=== PATIENT | female | born 1985 | race Caucasian/White ===

== ENCOUNTER 2021-03-27 13:24 | Outpatient (REF) | payer OTHER, SELFPAY ==
--- NOTE | ~2021-03-27 | US_ITS ---
EXAMINATION: US SOFT TISSUE (AXILLA), BILATERAL CLINICAL INFORMATION: 36-year-old female with bilateral intermittent axillary sensitivity. No palpable mass, erythema, discharge. Prior history surgical drainage abscess left axilla. No family history breast cancer. COMPARISON: None. TECHNIQUE: Ultrasound of both axilla are performed using grayscale imaging and color Doppler without and with harmonics. FINDINGS: Neither axilla shows cystic or solid mass or lymphadenopathy. There is no skin thickening or abscess or edema tracking in the soft tissue planes. No hyperemia. Scattered bilateral small benign axillary nodes are demonstrated with normal dilip architecture and color flow. Results are discussed with patient at time of imaging. US/US breast LT limited IMPRESSION: Normal bilateral axillary ultrasound. No lymphadenopathy or inflammatory changes.
--- NOTE | ~2021-03-27 | US_ITS ---
EXAMINATION: US SOFT TISSUE (AXILLA), BILATERAL CLINICAL INFORMATION: 36-year-old female with bilateral intermittent axillary sensitivity. No palpable mass, erythema, discharge. Prior history surgical drainage abscess left axilla. No family history breast cancer. COMPARISON: None. TECHNIQUE: Ultrasound of both axilla are performed using grayscale imaging and color Doppler without and with harmonics. FINDINGS: Neither axilla shows cystic or solid mass or lymphadenopathy. There is no skin thickening or abscess or edema tracking in the soft tissue planes. No hyperemia. Scattered bilateral small benign axillary nodes are demonstrated with normal dilip architecture and color flow. Results are discussed with patient at time of imaging. US/US breast RT limited IMPRESSION: Normal bilateral axillary ultrasound. No lymphadenopathy or inflammatory changes.
== END 2021-03-27 13:25 | disposition home or self-care (01) ==
LOC: HO.MAMMO 13:24
PROVIDERS: Visit Provider Internal Medicine
DX: M79.622 Pain in left upper arm (principal); M79.621 Pain in right upper arm
CPT/HCPCS: 76642

== ENCOUNTER → 2021-03-29 13:30 | Outpatient (REF) | payer OTHER, SELFPAY ==
--- NOTE | 2021-03-29 13:40 | ECG_ITS ---
Hook-up date: 2021-03-29 13:42:00 Duration: 47:59:00 Test Indications: r00.2 Medications: [id number] QRS complexes 1 Ventricular ectopics which represent <1 % of total QRS comp. 16 Supraventricular ectopics which represent <1 % of total QRS comp. * Paced QRS complexs which represent % of total QRS comp. VENTRICULAR ECTOPY 1 Isolated 0 Bigeminal Cycles 0 Couplets 0 Runs 0 Beats in Runs * Beats LONGEST at * BPM at :: -- * Beats FASTEST at * BPM at :: -- SUPRAVENTRICULAR ECTOPY 16 Isolated 0 Couplets 0 Runs 0 Beats in Runs * Beats LONGEST at * BPM at :: -- * Beats FASTEST at * BPM at :: -- HEART RATES 56 MIN at 21:47:55 2021-03-30 87 AVG 155 MAX at 09:12:15 2021-03-31 LONGEST RR 1.1280 secs at 21:47:55 2021-03-30 S-T LEVELS Channel 1 - 128 mm at 13:42:00 2021-03-29 - 128 mm at 13:42:00 2021-03-29 Channel 2 - 128 mm at 13:42:00 2021-03-29 - 128 mm at 13:42:00 2021-03-29 Channel 3 - 128 mm at 03:30:11 -- - 128 mm at 03:30:11 Basic rhythm Normal sinus rhythm No long pause or profound bradycardia Rare Premature atrial complexes Patient did not report any symptoms in the diary Referred By: Karely Bhardwaj Overread By: AMADOU TAPIA MD
== END ==
LOC: HO.CARD 13:30
PROVIDERS: PCP Internal Medicine; Visit Provider Internal Medicine
DX: R00.2 Palpitations (principal)
CPT/HCPCS: 93225; 93226

== ENCOUNTER 2024-10-06 10:10 | Outpatient (AMB) | payer MEDICAID, SELFPAY ==
--- NOTE | 2024-10-06 10:16 | A.OFFPC_ITS ---
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 Accompanied by: Self / Same As Patient Is last menstrual period known: No Allergies No Known Allergies Allergy (Verified 10/06/24 10:30) Medication List - Last Reconciled 10/06/24 by Karely Bhardwaj MD No Known Home Meds Tobacco use date assessed: 10/06/24 Dental Screening Dental Screen Date: 10/06/24 Did you have a dental visit in the last 12 months?: Yes Did you have a dental problem in the last 6 months where you did not have access to dental care?: No Was dental information given to patient?: Patient has dentist HPI HPI Comments History of Present Illness Details The patient is a 39-year-old female presenting for her annual physical examination. 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 She describes an episode of intense palpitations and chest discomfort at work, leading her to be concerned enough to inform her colleagues about her medical plan. This anxiety is situational, often occurring when she anticipates challenging behaviors from her students. There is no ongoing use of medication for anxiety, and she reports that her anxiety usually subsides with time and deep breathing. She denies any regular anxiety medication use. She underwent axillary lipoma removal in 2009 and has had a bilateral tubal ligation. She had a previous diagnosis of chlamydia, which prompted her to seek medical advice and led to a subsequent divorce. Her last Pap smear was two to three years ago, with a noted history of chlamydia, but the results were otherwise normal. She has no history of colorectal or breast cancer in her family, but a family history of bladder cancer is noted. - Vaccinations are up to date, with the next grwtchf-supneetxbj-owcmhynwp (Tdap) booster due in 2025. - Last Pap smear was within two to three years. - Recommended regular screenings include cholesterol, glucose, renal, and liver function tests. [facility] Medical History Chlamydia Palpitations Obese Surgical History History of tubal ligation Mass of axilla Family History (Updated 10/06/24 @ 10:35 by Karely Bhardwaj MD) Father No problems noted. Mother Bladder cancer Maternal Aunt Liver cancer Social History Housing: House Alcohol intake: current Alcohol intake frequency: a few times a month Alcohol type: hard liquor Patient Tobacco Use Status: Never used Tobacco e-Cigarette/Vaping Use: Never Used Second Hand Smoke Exposure: No service: No Current occupational status: employed Current occupational exposures/hazards: No Cognitive needs: No Hearing needs: No Vision needs: No Questionnaire PHQ-9 Over the last 2 weeks, how often have you been bothered by any of the following problems? 1. Little interest or pleasure in doing things: not at all 2. Feeling down, depressed, or hopeless: not at all 3. Trouble falling or staying asleep, or sleeping too much: not at all 4. Feeling tired or having little energy: not at all 5. Poor appetite or overeating: not at all 6. Feeling bad about yourself - or that you are a failure or have let yourself or your family down: not at all 7. Trouble concentrating on things, such as reading the newspaper or watching television: not at all 8. Moving or speaking so slowly that other people could have noticed. Or the opposite - being so fidgety or restless that you have been moving around a lot more than usual: not at all 9. Thoughts that you would be better off or of hurting yourself in some way: not at all Total score: 0 Depression Screening Interpretation: Negative Depression Screening Done: Yes 75634 - PHQ-9 Billing: Yes Source: Developed by Drs. Smith Tuttle, Irina Koroma, Piyush Randolph and colleagues, with an educational nichelle from [employer]. Thrive Questionnaire Date Thrive assessed: 10/04/24 I am a: Patient What is your living situation today?: I choose not to answer this question Within the past 12 months, did the food you bought not last and you didn't have the money to get more?: Never true Within the past 12 months, did you worry whether your food would run out before you got money to buy more?: Never true Do you have trouble paying for medicines?: No Do you have trouble getting transportation to medical appointments?: Yes Do you have trouble paying your heating and electricity bill?: Yes Do you have trouble taking care of your child, family member or friend?: No Do you have trouble with day-to-day activities such as bathing, preparing meals, shopping, managing finances, etc.?: No Are you currently unemployed and looking for a job?: No Are you interested in more education?: I choose not to answer this question Please select the resources that you would like help with: Transportation Currently or been in a relationship where the following occur: I choose not to answer THRIVE Score: 2 AUDIT C Alcohol Use Questionnaire (AUDIT-C) 1. How often do you have a drink containing alcohol?: Monthly or less 2. How many drinks containing alcohol do you have on a typical day when you are drinking?: 1 or 2 3. How often do you have six or more drinks on one occasion?: Never Total Score: 1 Score Reviewed/Action Taken: No JOSSELINE-7 AMB Questionnaire JOSSELINE-7 Date JOSSELINE - 7 assessed: 10/06/24 Feeling nervous, anxious, or on edge: 0 = Not at all Not being able to stop or control worryin = Not at all Worrying too much about different things: 0 = Not at all Trouble relaxin = Not at all Being so restless that it is hard to sit still: 0 = Not at all Becoming easily annoyed or irritable: 0 = Not at all Feeling afraid as if something awful might happen: 0 = Not at all Total JOSSELINE-7 score (0-4 normal; 5-9 mild; 10-14 moderate; 15-21 severe): 0 Source: Developed by Drs. Smith Tuttle, Irina Koroma, Piyush Randolph and colleagues, with an educational nichelle from [employer]. JOSSELINE-7 Assessment Billing JOSSELINE-7 Assessment Tool: JOSSELINE-7 Assessment 87953 Review of Systems Const All systems reviewed & are unremarkable except as noted in HPI and below Card Denies chest pain at rest, Denies chest pain with activity, Denies edema, Denies irregular heart rhythm, Denies claudication, Denies dyspnea, Denies dyspnea on exertion, Denies orthopnea, Denies paroxysmal nocturnal dyspnea and Denies slow heart rate Resp Denies cough, Denies dyspnea and Denies dyspnea on exertion GI Denies abdominal pain, Denies change in bowel habits, Denies excessive flatus, Denies nausea and Denies vomiting Denies urinary incontinence, Denies urinary hesitancy and Denies urinary urgency Musc Denies abnormal gait, Denies atrophy, Denies deformity and Denies limited range of motion Skin/Breast Denies bleeding lesions, Denies changing lesions and Denies rash Neuro Denies abnormal gait, Denies behavioral changes and Denies lack of coordination Psych Denies behavioral changes Physical exam (Primary Care) Vital Signs: Last Vital Signs BP 110/72 10/06/24 10:19 BMI result Body Mass Index 25.3 Tobacco/Smoking Status: Tobacco use Status Tobacco use date assessed 10/06/24 10/06/24 10:24 Patient Tobacco Use Status Never used Tobacco 10/06/24 10:18 e-Cigarette/Vaping Use Never Used 10/06/24 10:24 PHQ-9: PHQ-9 Score PHQ-9: Total score 0 10/06/24 10:31 Depression Screening Interpretation: Negative Thrive Assessment: Date of Thrive Assessment Date Thrive assessed 10/04/24 10/06/24 10:18 Currently or been in a relationship where the following occur: I choose not to answer HENMT Head: Yes normal to inspection, Yes normocephalic and Yes atraumatic Ears: external ears normal Eyes General: appearance normal, both eyes and all related structures Eyelids: Yes eyelids normal Conjunctivae: conjunctivae normal Neck Neck: Yes normal visual inspection and Yes supple Resp Effort & Inspection: normal respiratory effort Auscultation: clear to auscultation bilaterally Cardio Jugular venous distension: no JVD Rate: regular rate Rhythm: regular rhythm Heart sounds: S1 normal heart sound present and S2 normal heart sound present GI Inspection: Yes normal to inspection Palpation (GI): Soft to palpation and nontender Auscultation: normal bowel sounds Skin General skin exam: no rashes or lesions noted Neuro General: no focal motor deficits Extrem General: Yes full ROM Psych Appearance: grossly normal Office Procedures Flu Questionnaire Does the patient have a severe egg allergy?: No Immunizations Fluarix Triv [id number] (PF) 45 mcg (15 mcg x 3)/0.5 mL IM syringe Performing Provider: Karely Bhardwaj MD Performing Location: [facility] Documented (not given) by: Sebastián PÉREZ Mirza on 10/06/24 10:26 Reason Not Given: Patient Refused Coding Level of Care Code Est Pt Prev Care 18-39y(74582) Diagnoses Physical exam Z00.00 Additional Codes JOSSELINE-7 Assessment Billing - JOSSELINE-7 Assessment Tool: JOSSELINE-7 Assessment 21300 ([id number]) PHQ-9 - 90123 - PHQ-9 Billing: Yes ([id number]) Time Spent (min) 31 Assessment & Plan Assessment & Plan (1) Physical exam: Code(s): Z00.00 - Encounter for general adult medical examination without abnormal findings Category: Medical Plan - Anxiety: I will continue to monitor her anxiety levels related to workplace stress. Reassurance and stress management techniques were discussed. - Laboratory Testing: Ordered tests for cholesterol, glucose, renal, and liver function. - Sexual Health: Screening for HIV, hepatitis panel, syphilis, and a repeat test for chlamydia and gonorrhea in urine. Patient was informed and verbally consented to the use of an ambient scribe for clinic note documentation during this visit. During today's visit, I discussed the management of the patient's situational anxiety, emphasizing stress management strategies and maintaining a detailed plan of action should she experience intense episodes again. We reviewed her health maintenance needs, including screening labs, and updated her on the Pap smear results while reassuring her that the HPV-negative result allows a longer interval to the next test. The patient has been informed about additional STD testing and given options for further evaluation if necessary. I addressed her family history concerns, specifically regarding bladder cancer, and recommended continued regular screenings. I emphasized the importance of following up on recommended laboratory tests within the suggested timeframe and maintaining regular follow-up visits for ongoing healthcare maintenance. Orders: Orders Syphilis Screen Today Z11.3 - Encounter for screening for infections with a predominantly sexual mode of transmission HIV Ab/Ag Today Z11.3 - Encounter for screening for infections with a predominantly sexual mode of transmission Influenza 1007-0921 Immunization Today Z23 - Encounter for immunization Comprehensive [place]. Panel Fast Today Z00.00 - Encounter for general adult medical examination without abnormal findings Lipid Panel Today Z00.00 - Encounter for general adult medical examination without abnormal findings CT NG by PCR Today Z11.3 - Encounter for screening for infections with a predominantly sexual mode of transmission Hepatitis B,C Profile Today Z11.3 - Encounter for screening for infections with a predominantly sexual mode of transmission Patient Instructions: - Schedule laboratory tests (cholesterol, glucose, renal, liver function) within the next three months. - Seek medical attention if anxiety becomes unmanageable or if new symptoms such as recurrent palpitations occur. - Maintain a stress management routine to help manage situational anxiety. - Continue routine health maintenance and screenings, including Pap smears as advised.
[2024-10-06 10:19] VITALS: BP 110/72; BMI 25.3
== END 2024-10-06 10:44 | disposition home or self-care (01) ==
PROVIDERS: PCP Internal Medicine; Visit Provider Internal Medicine
DX: Z23 Encounter for immunization (principal); Z00.00 Encounter for general adult medical examination without abnormal findings

== ENCOUNTER → 2024-10-06 10:10 | Outpatient (BNVA) | payer OTHER, SELFPAY | PROVIDERS: PCP Internal Medicine; Visit Provider Internal Medicine | DX: Z00.00 Encounter for general adult medical examination without abnormal findings (principal) | CPT/HCPCS: 90471; 96127; 99395 ==

== ENCOUNTER 2025-01-18 08:19 | Outpatient (AMB) | payer OTHER, SELFPAY ==
[2025-01-18 08:20] VITALS: BP 120/80; PULSE 70; O2SAT 98; BMI 26.8
--- NOTE | 2025-01-18 08:20 | MHC.OFFWIV ---
Intake Vital Signs 01/18/25 08:20 Height 5 ft 1 in Weight 142 lb BMI 26.8 BP 120/80 Blood Pressure Location Lt brachial Position Sitting Pulse 70 Pulse Source Pulse Oximeter Pulse Oximetry (%) 98 Oxygen Delivery Method Room Air Intake Visit Reasons: EP eye irritation, itching Intake Note: Patient here for watery eyes. she states that her eyes were red, itchy and watery and she went to eye dr twice and was prescribed eyes drops which helped with the itching and redness but her eyes are still very watery and nothing is helping. Patient Tobacco Use Status: Never used Tobacco Allergies No Known Allergies Allergy (Verified 01/18/25 08:30) Medication List - Last Reconciled 01/18/25 by Ponce Oneil MD tobramycin-dexamethasone 0.3-0.05 % (Tobradex ST) drps ophthalmic (eye) Do you need a note to return to daycare/school/sports/work: Yes HPI EP eye irritation, itching HPI Details History - The patient is a 39-year-old female presenting with dry eyes and light sensitivity. - Initial symptoms, including red, watery, and itchy eyes, began around two to three weeks prior to this visit. - The symptoms primarily occur when exposed to light and outdoor environments, causing significant discomfort and a perception of crying. - This episode is the third of its kind in the last 18 months, suggesting a recurring nature. - She received steroid eye drops through ophthalmology, which alleviated symptoms, but concerns about steroid use were noted. - She reports resolving redness with ongoing persistent watering. - No infections or inflammations have been detected previously, but chronicity and reoccurrence prompted further investigation needs. Problem List - Dry Eyes - Light Sensitivity Patient Instructions - Use steroid eye drops only when necessary for symptomatic relief, primarily during work hours.. - Ensure to proceed with the scheduled fasting blood test. Ordered by PCP - Rest and take a day off as needed for recovery and comfort. - continue follow up with Ophthalmology if symptoms do not resolve Review of Systems - Ocular: Reports persistent eye watering and light sensitivity. Denies current redness or itching. - General: No fever no chills - Neurological: No headaches no dizziness - Ear nose throat: No sore throat no hearing difficulty no ear pain - Cardiovascular: No syncope, no chest pain, no palpitations - Gastrointestinal: No nausea vomiting or diarrhea Physical Exam General: No acute distress HEENT: Eyes within normal limit at this time CHAD, EOMI Neck: Supple Respiratory system: Able to talk in full sentences, no audible wheeze Extremities: No new findings VISITING HOUSEKEEPER: Alert awake oriented x3 motor sensory intact Skin: Normal turgor [facility] Medical History Chlamydia Palpitations Obese Surgical History History of tubal ligation Mass of axilla Family History Father No problems noted. Mother Bladder cancer Maternal Aunt Liver cancer Social History Housing: House Alcohol intake: current Alcohol intake frequency: a few times a month Alcohol type: hard liquor Patient Tobacco Use Status: Never used Tobacco e-Cigarette/Vaping Use: Never Used Second Hand Smoke Exposure: No service: No Current occupational status: employed Current occupational exposures/hazards: No Cognitive needs: No Hearing needs: No Vision needs: No Physical Exam Vital Signs: Last Vital Signs Pulse 70 01/18/25 08:20 BP 120/80 01/18/25 08:20 Pulse Ox 98 01/18/25 08:20 Oxygen Delivery Method Room Air 01/18/25 08:20 BMI result Body Mass Index 26.8 Assessment & Plan Assessment & Plan (1) Eye discomfort: Code(s): H57.10 - Ocular pain, unspecified eye Qualifiers: Laterality: bilateral Qualified Code(s): H57.13 - Ocular pain, bilateral Plan History - The patient is a 39-year-old female presenting with dry eyes and light sensitivity. - Initial symptoms, including red, watery, and itchy eyes, began around two to three weeks prior to this visit. - The symptoms primarily occur when exposed to light and outdoor environments, causing significant discomfort and a perception of crying. - This episode is the third of its kind in the last 18 months, suggesting a recurring nature. - She received steroid eye drops through ophthalmology, which alleviated symptoms, but concerns about steroid use were noted. - She reports resolving redness with ongoing persistent watering. - No infections or inflammations have been detected previously, but chronicity and reoccurrence prompted further investigation needs. Problem List - Dry Eyes - Light Sensitivity Patient Instructions - Use steroid eye drops only when necessary for symptomatic relief, primarily during work hours.. - Ensure to proceed with the scheduled fasting blood test. Ordered by PCP - Rest and take a day off as needed for recovery and comfort. - continue follow up with Ophthalmology if symptoms do not resolve Coding Level of Care Code Est Pt Level 3 (17225) Diagnoses Discomfort of both eyes H57.13 Laterality: bilateral
--- OUTSIDE RECORDS SUMMARY | 2025-01-18 08:43 | XMS_ITS | Clinical Summary ---
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 Name Role Phone Unavailable Primary Care Provider Unavailabl e Social History Tobacco Use Types Packs/Day Years Used Date Smoking Tobacco: Never Assessed Comments Unknown Sex and Gender Information Value Date Recorded Sex Assigned at Not on file Legal Sex Female 6:15 AM EST Gender Identity Not on file Sexual Orientation Not on file Plan of Treatment Health Maintenance Due Date Last Done Comments DTaP,Tdap,and Td Vaccines (1 - Tdap) 2005 Hepatitis B Vaccines (1 of 3 - 19+ 3-dose series) 2005 Cervical Cancer Screening: P ap Smear 2007 Depression Screening 10/19/2022 HIV Screening 10/19/2022 Hepatitis C Screening 10/19/2022 Social Influencers of Health Screening 10/19/2022 COVID-19 Vaccine (2023-2 5 season) 2024 Influenza Vaccine (#1) 2024 HIB Vaccines Aged Out No longer eligi ble based on patient's age to complete this topic HPV Vaccines Aged Out No longer eligi ble based on patient's age to complete this topic Hepatitis A Vaccines Aged Out No long er eligible based on patient's age to complete this topic IPV Vaccines Aged Out No longer eligi ble based on patient's age to complete this topic MMR Vaccines Aged Out No longer eligi ble based on patient's age to complete this topic Meningococcal ACWY Vaccine Aged Out N o longer eligible based on patient's age to complete this topic Meningococcal B Vacine Aged Out No lo nger eligible based on patient's age to complete this topic Pneumococcal Vaccine: Pediat rics (0 to 5 Years) and At-Risk Patients (6 to 64 Years) Aged Out No longer eligible b ased on patient's age to complete this topic RSV Immunization Patients Un naomi 20 months Aged Out No longer eligible b ased on patient's age to complete this topic Varicella Vaccines Aged Out No longer eligible based on patient's age to complete this topic
== END 2025-01-18 08:41 | disposition home or self-care (01) ==
PROVIDERS: PCP Internal Medicine; Visit Provider Internal Medicine
DX: H57.13 Ocular pain, bilateral (principal)

== ENCOUNTER → 2025-01-18 08:19 | Outpatient (BNVA) | payer OTHER, SELFPAY | PROVIDERS: PCP Internal Medicine; Visit Provider Physician Assistant | DX: H57.13 Ocular pain, bilateral (principal) | CPT/HCPCS: 99212 ==

== ENCOUNTER 2025-01-18 08:42 | Outpatient (REF) | payer OTHER, SELFPAY ==
--- OUTSIDE RECORDS SUMMARY | 2025-01-18 09:21 | XMS_ITS | Clinical Summary ---
Author Organization [facility] Address [address] [place] [address] Care Team Providers Care Property Management Assistant Name Role Phone Unavailable Primary Care Provider [...] complete this topic RSV Immunization Patients Un namoi 20 months Aged Out No longer eligible b ased on patient's age to complete this topic Varicella Vaccines Aged Out No longer eligible based on patient's age to complete this topic
[2025-01-18 11:30] LABS: Alanine Aminotransferase 15 U/L (0-31); Albumin Level 3.9 g/dL (3.5-5.0); Alkaline Phosphatase 75 U/L (39-117); Anion Gap 9 (12-20); Aspartate Amino Transferase 18 U/L (5-31); Bilirubin Total 0.4 mg/dL (0.0-1.0); Blood Urea Nitrogen 8 mg/dL (9-16); Calcium 8.9 mg/dL (8.4-10.2); Carbon Dioxide 26 mmol/L (22-29); Chloride 109 mmol/L (96-108); Cholesterol 182 mg/dL (<200); Estimated Glomerular Filt Rate > 60; Glucose Fasting 94 mg/dL (60-99); HDL Cholesterol 55 mg/dL (>40); LDL Cholesterol Calculated 112 mg/dL (<100); Potassium 4.1 mmol/L (3.3-5.1); Sodium 140 mmol/L (135-145); Total Protein 7.6 g/dL (6.5-8.0); Triglycerides 76 mg/dL (<150)
[2025-01-18 11:34] LABS: HBS Num1 2.74 mIU/mL (0-7.99); HBc Num1 0.08 S/CO (0.00-0.79); HIV AB/AG Nonreactive (Nonreactive); HIV Num 1 0.06 S/CO (0.00-0.99); Hepatitis B Core Antibody Nonreactive (Nonreactive); Hepatitis B Surface Antigen Negative (Negative); Syphilis Screen Nonreactive (Nonreactive); ~HepC Num1 0.11 S/CO (0.00-0.79); ~Hepatitis B Surface Antibody NONREACTIVE (Nonreactive); ~Hepatitis C Antibody Nonreactive (Nonreactive)
[2025-01-18 12:33] LABS: CT PCR DETECTED (Not Detect.); NG PCR NOT DETECTED (Not Detect.)
== END 2025-01-18 08:43 | disposition home or self-care (01) ==
LOC: HO.HMGCLDS 08:42
PROVIDERS: PCP Internal Medicine; Visit Provider Internal Medicine
DX: Z00.00 Encounter for general adult medical examination without abnormal findings (principal); Z11.3 Encounter for screening for infections with a predominantly sexual mode of transmission
CPT/HCPCS: 80053; 80061; 86704; 86706; 86780; 86803; 87340; 87389; 87491; 87591